=== PATIENT | female | born 1960 | race Caucasian/White ===

== ENCOUNTER → 2017-02-08 | Outpatient (CLI) | payer BC ==
--- NOTE | 2017-02-18 08:51 | RAD ---
DATE: 02/08/2017 EXAM: DIGITAL SCREEN BILAT W/CAD HISTORY: Routine screening COMPARISON: 02/03/2016 This study was interpreted with the benefit of Computerized Aided Detection (CAD). The breast parenchyma is heterogeneously dense, which could reduce sensitivity of mammography. Breast parenchyma level C. FINDINGS: 2-D and 3-D tomosynthesis imaging was performed in CC and MLO projections. There is an unchanged small smooth nodule in the medial aspect of the left breast. This is unchanged since 12/12/2012 indicating a benign etiology. There is a small asymmetric opacity in the upper inner quadrant of the right breast posteriorly. This is best seen on the CC mike image number 45. A similar opacity was present on the previous study, although better defined on today's tomograms. Although there has been no definite interval progression, sonographic evaluation is suggested. No other suspicious or enlarging breast densities are seen. Minimal benign type calcifications present. No suspicious microcalcifications are delineated. IMPRESSION: Small breast asymmetry in the upper inner quadrant of the right breast. Sonographic evaluation is suggested. BI-RADS CATEGORY: 0 INCOMPLETE: NEEDS ADDITIONAL IMAGING EVALUATION AND/OR PRIOR MAMMOGRAMS FOR COMPARISON. RECOMMENDED FOLLOW-UP: ADD ADDITIONAL IMAGING PQRS compliance statement: Patient information was entered into a reminder system with a target due date for the next mammogram. Mammography is a sensitive method for finding small breast cancers, but it does not detect them all and is not a substitute for careful clinical examination. A negative mammogram does not negate a clinically suspicious finding and should not result in delay in biopsying a clinically suspicious abnormality. "Our facility is accredited by the [employer] Mammography Program."
== END | disposition home or self-care (01) ==
LOC: MAMMO 14:44
PROVIDERS: ATTEND Obstetrics & Gynecology
DX: Z12.31 Encounter for screening mammogram for malignant neoplasm of breast (principal)
CPT/HCPCS: G0202; 77067

== ENCOUNTER → 2017-03-07 | Outpatient (CLI) | payer BC ==
--- NOTE | 2017-03-07 16:02 | RAD ---
Examination: Targeted ultrasound right breast History: History of asymmetry right breast Comparison: None available Findings: Ultrasound of the right breast from 12-6 o'clock position medially demonstrated no definite evidence of mass or lesion identified. Impression: Probably benign findings BI-RADS Category 3. Recommend right breast mammogram in 6 months. Patient was entered on mammography cardiomediastinal target due date of 09/03/2017.
== END | disposition home or self-care (01) ==
LOC: US 13:03
PROVIDERS: ATTEND Obstetrics & Gynecology
DX: N64.89 Other specified disorders of breast (principal)
CPT/HCPCS: 76641